=== PATIENT | male | born 1960 | race Caucasian/White ===

== ENCOUNTER 2019-09-15 17:30 | Inpatient (IN) ==
[2019-09-15] MEDS ORDERED: NS 1,000 ML IV ONE (17:41)
[2019-09-15 18:23] LABS: BASO# 0.02 X1000 (0.0-0.2); BASO% 0.1 % (0.0-0.8); EOS# 0.01 X1000 (0.0-0.7); EOS% 0.1 % (0.0-10.0); HEMATOCRIT 53.4 % (42.0-52.0); HEMOGLOBIN 18.2 g/dL (14.0-18.0); IMM GRAN# 0.06 X1000 (0.0-0.04); IMM GRAN% 0.3 % (0.0-0.5); LYMPH# 1.99 X1000 (1.2-3.4); MCH 28.4 PG (27-31); MCHC 34.1 g/dL (33-37); MCV 83.3 FL (81-99); MONO# 1.46 X1000 (0.11-0.59); MONO% 7.3 % (1.7-9.3); MPV 9.6 FL (7.4-10.4); NEUT# 16.45 X1000 (1.4-6.5); NEUT% 82.2 % (42.2-75.2); PLT 298 X1000 (130-400); RBC 6.41 XMIL (4.7-6.1); RDW 14.1 % (11.5-14.5); WBC 19.99 X1000 (4.8-10.8)
[2019-09-15 19:17] LABS: ACETAMINOPHEN < 1.2 ug/mL (10-30); AGAP 26; ALB/GLOB RATIO 1.9; ALBUMIN 5.4 g/dL (3.5-5.0); ALKALINE PHOSPHATASE 119 U/L (32-122); BUN 42 mg/dL (8-22); CALCIUM 9.9 mg/dL (8.8-10.2); CHLORIDE 84 mmol/L (98-107); COSMO 290; CREATININE 1.5 mg/dL (0.7-1.2); ESTIMATED GFR 48; GLUCOSE 400 mg/dL (70-104); GOT 16 U/L (10-34); GPT 10 U/L (10-44); MAGNESIUM 2.5 mg/dL (1.5-2.7); POTASSIUM 4.8 mmol/L (3.5-5.1); SODIUM 131 mmol/L (136-145); TCO2 21 mmol/L (25-35); TOTAL BILIRUBIN 1.37 mg/dL (0.20-1.00); TOTAL PROTEIN 8.3 g/dL (6.3-8.3)
[2019-09-15] MEDS ORDERED: HUMULIN R SUBQ ONE (19:17)
--- NOTE | 2019-09-15 19:18 | Diag Imaging Result Doc PS360 ---
EXAM: CHEST-2 VIEWS 09/15/2019 HISTORY: AMS + ELEVATED WBC TECHNIQUE: PA and lateral chest COMMENT: The inspiration is suboptimal. Considering the degree of inspiration there has been no significant change since 09/10/2018. IMPRESSION: No acute disease. Electronically signed by Satnam Collado 09/15/2019 7:16 PM
[2019-09-15 19:29] LABS: GGT 34 U/L (11-50)
[2019-09-15 19:48] LABS: SALICYLATES < 3.00 mg/dL (3-10)
[2019-09-15 20:00] LABS: URINE SOURCE CATH
--- NOTE | 2019-09-15 20:00 | PROVIDER DOCUMENTATION ---
This chart was entered by Sandhya Agarwal Scribe, acting as scribe for Kyle Gonzalez MD. [id number] Abuse/Overdose - General Source: patient, EMS (first response, was called when pt had a well check from police and was found ams) Unable to obtain history due to:: altered (possible OD of medications) - History of Present Illness-Drug/Alcohol This episode of drinking or use began:: unsure Severity: reports: moderate Situational problems related to:: reports: other (unknown) Psychiatric Complaints: reports: altered mental status Any injuries associated with this episode of intoxication?: No <Kyle Gonzalez - Last Filed: 09/15/19 19:59> <Darion Martinez - Last Filed: 09/15/19 20:48> - General Stated Complaint: overdose Time Seen by Provider: 09/15/19 17:34 Allergies/Adverse Reactions: Allergies Allergy/AdvReac Type Severity Reaction Status Date / Time No Known Allergies Allergy Verified 09/02/14 20:52 Home Medications: Home Medication List Medication Instructions Recorded Confirmed Last Taken Type Pregabalin [Lyrica] 150 mg PO TID 11/12/13 09/03/18 09/02/18 History Sertraline HCl [Zoloft] 100 mg PO DAILY 11/12/13 09/03/18 09/02/18 History Insulin Humalog 75/25 [Humalog Mix 22 unit SUBQ DIRECTED 05/11/14 09/03/18 09/02/18 History 75/25] Ranitidine HCl [Zantac] 150 mg PO PRN PRN 05/11/14 09/03/18 09/01/18 History Metoprolol Succinate E.r. [Toprol 25 mg PO DAILY 09/02/14 09/03/18 09/02/18 History Xl] SIMVAstatin [Zocor] 10 mg PO QHS 09/02/14 09/03/18 09/03/18 History Alprazolam [Xanax] 2 mg PO TID PRN 09/03/18 09/03/18 09/03/18 History Buprenorphine HCl/Naloxone HCl 0.5 film SL Q6H 09/04/18 09/04/18 Unknown History [Suboxone 8 mg/2 mg Sl Film] Insulin Glargine [Lantus] 30 unit SUBQ QHS #0 09/12/18 09/03/18 09/02/18 Rx Sulfamethoxazole/Tmp D.s. [Septra 1 ea PO Q12H #16 tab 09/12/18 Unknown Rx Ds] - History of Present Illness-Drug/Alcohol Nature of Presenting Problem: 59 yowm presents to the ed via ems with possible overdose on unknown medication and unknown amounts. per ems pt missed an medical appointment and when dr office called no answer and police was sent for a well check. pt was found surrounded by medication bottles that were all empty and pt has ams (Kyle Gonzalez) Review of Systems - Adult - REVIEW OF SYSTEMS - ADULT ROS:: unobtainable per condition Constitutional: reports: no symptoms reported Eyes: reports: no symptoms reported Ears, Nose, Mouth & Throat: reports: no symptoms reported Cardiovascular: reports: no symptoms reported Respiratory: denies: shortness of breath, wheezing Gastrointestinal: reports: no symptoms reported Genitourinary: reports: no symptoms reported Musculoskeletal: reports: no symptoms reported Integumentary: reports: no symptoms reported Neurological: reports: see HPI, slurred speech, other (ams) Psychiatric: reports: see HPI, other (possible od) Endocrine: reports: no symptoms reported Hematologic/Lymphatic: reports: no symptoms reported Allergic/Immunologic: reports: no symptoms reported All Other Systems: Reviewed and Negative <Kyle Gonzalez - Last Filed: 09/15/19 19:59> Past History - Adult - PAST MEDICAL HISTORY-ADULT Review of Records: reports: Old Records Reviewed, Nursing Assessment Review, Medications Reviewed, Social history reviewed & non-contributory. Major Childhood Illnesses: reports: denies history Cardiovascular: reports: cardiac disease, CAD, HTN Respiratory: reports: denies history Gastrointestinal: reports: denies history Genitourinary: reports: other (only has 1kidney) Musculoskeletal: reports: chronic pain, intervertebral disc disease Neurological: reports: denies history Psychiatric: reports: anxiety Endocrine/Immune: reports: denies history, Diabetes Diabetes Type: Type 2 Other Conditions: reports: denies history - PRIOR SURGERIES/PROCEDURES Surgical/Procedure History: reports: CABG, other (lumbar spine) - IMMUNIZATION STATUS Childhood Immunizations: UTD Flu Vaccine: UTD - FAMILY HISTORY Family History: reviewed, not pertinent - SOCIAL HISTORY Smoking: cigarettes, greater than 1 pack/day Provider spent 3-5 mins advising pt. on dangers of tobacco.: Discussed manners to quit use, and f/u contacts for add'l counseling. Living Situation: alone <Kyle Gonzalez - Last Filed: 09/15/19 19:59> Physical Exam-General - CONSTITUTIONAL General Appearance: mild distress - EYES Eyes: PERRL/EOMI - HEAD, EARS, NOSE, MOUTH & THROAT HENMT: moist mucous membranes - NECK Neck: normal inspection - RESPIRATORY Respiratory: chest non-tender, lungs clear, normal breath sounds - CARDIOVASCULAR Cardiovascular: normal peripheral pulses - CHEST (BREASTS) Chest/Breast: deferred - GASTROINTESTINAL (ABDOMEN) Abdominal Exam: soft - GENITOURINARY Male Genitalia: deferred Rectal Exam: deferred Hemoccult Exam: deferred - LYMPHATIC Lymphatic: no adenopathy - MUSCULOSKELETAL Extremity: normal range of motion - PSYCHIATRIC Psych/Mental Status: disoriented x 3, disheveled <Kyle Gonzalez - Last Filed: 09/15/19 19:59> Progress - PLAN OF CARE/RESULTS Result Diagrams: 09/15/19 18:00 09/15/19 18:00 - REASSESSMENT Reassessment #1 Time Reassessed: 19:58 Status: other (HEMODYNAMICALLY STABLE AND AFEBILE; CURRENTLY WORKING UP FOR DKA. PATIENT REEIVED 10U INSULINE REGULAR. SINGING OUT TO DR. STUBBS) - EKG 1 Time of EKG reading by physician:: 19:59 EKG Read and Signed by:: Kyle Gonzalez EKG Interpretation (*Must complete 3 of following elements*): Normal Rate: 78 Rhythm: NORAL SINUS RHYTHM [place]: left QRS: normal SD Interval: normal Prior EKG Comparison: unchanged from prior, no prior EKG - CHANGE OF SHIFT REPORT (ED Provider) 1 Report Given and Care Transferred to:: dR. MARTINEZ Time of Transfer: 19:57 Items Pending: Labs, Physician Consult/Arrival, Other (MEDICAL MANAGMENT.) <Kyle Gonzalez - Last Filed: 09/15/19 19:59> - PLAN OF CARE/RESULTS Result Diagrams: 09/15/19 18:00 09/15/19 18:00 - CONSULTS/PCP/HOSPITALIST Notification #1 *Consult/PCP/Hospitalist*: d/w Dr Chandra Time Discussed: 20:40 Consult Disposition: Admit (advised CT head, will accept the pt.) <Darion Martinez - Last Filed: 09/15/19 20:48> - PLAN OF CARE/RESULTS Progress/Plan/Lab Results: Vital Signs - 8 hr 09/15/19 17:50 09/15/19 19:13 09/15/19 19:15 Temperature 98.6 F Pulse Rate 77 Respiratory Rate 20 Blood Pressure 161/98 165/103 O2 Sat by Pulse Oximetry 93 L 93 L 94 L 09/15/19 19:30 09/15/19 19:45 09/15/19 19:54 Temperature Pulse Rate Respiratory Rate Blood Pressure 132/89 O2 Sat by Pulse Oximetry 93 L 95 92 L 09/15/19 20:00 09/15/19 20:15 Temperature Pulse Rate Respiratory Rate Blood Pressure O2 Sat by Pulse Oximetry 92 L 95 Laboratory Results - last 24 hr 09/15/19 09/15/19 09/15/19 17:39 18:00 18:00 WBC 19.99 H RBC 6.41 H Hgb 18.2 H Hct 53.4 H MCV 83.3 MCH 28.4 MCHC 34.1 RDW Std Deviation 14.1 Plt Count 298 MPV 9.6 Immature Gran % (Auto) 0.3 Neut % (Auto) 82.2 H Lymph % (Auto) 10.0 L [place] % (Auto) 7.3 Eos % (Auto) 0.1 Baso % (Auto) 0.1 Immature Gran # (Auto) 0.06 H Neut # (Auto) 16.45 H Lymph # (Auto) 1.99 [place] # (Auto) 1.46 H Eos # (Auto) 0.01 Baso # (Auto) 0.02 Specimen Type Sample Site pH pCO2 pO2 HCO3 Base Excess Oxyhemoglobin ABG O2 Sat (Calculated) ABG O2 Saturation ABG Carboxyhemoglobin ABG Methemoglobin Floyd Test A-a O2 Difference Total Hemoglobin Lactate Blood Gas Modality FiO2 % Sodium 131 L Potassium 4.8 Chloride 84 L Carbon Dioxide 21 L Anion Gap 26 BUN 42 H Creatinine 1.5 H Estimated GFR/1.73 m2 48 BUN/Creatinine Ratio 28 Glucose 400 H* POC Glucose 340 H D Calculated Osmolality 290 Calcium 9.9 Magnesium 2.5 Total Bilirubin 1.37 H GGT AST 16 ALT 10 Alkaline Phosphatase 119 Ammonia Total Protein 8.3 Albumin 5.4 H Globulin 2.9 Albumin/Globulin Ratio 1.9 Urine Source Urine Color Urine Turbidity Urine pH Ur Specific [place] Urine Protein Ur Glucose (Stick) Ur Ketones (Stick) Urine Blood Urine Nitrite Urine Bilirubin Urobilinogen Dipstick Urine Leukocytes Urine WBC (Auto) Urine RBC (Auto) U Epithel Cells (Auto) Urine Bacteria (Auto) Salicylates Urine Opiates Screen Ur Oxycodone Screen Ur Methadone, Qual Acetaminophen < 1.2 L Ur Barbiturates Screen Ur Phencyclidine Scrn Ur Amphetamines Screen U Benzodiazepines Scrn Urine Cocaine Screen U Cannabinoids Screen Plasma/Serum Ethyl Alc Acetone Level 09/15/19 09/15/19 09/15/19 18:00 18:00 19:16 WBC RBC Hgb Hct MCV MCH MCHC RDW Std Deviation Plt Count MPV Immature Gran % (Auto) Neut % (Auto) Lymph % (Auto) [place] % (Auto) Eos % (Auto) Baso % (Auto) Immature Gran # (Auto) Neut # (Auto) Lymph # (Auto) [place] # (Auto) Eos # (Auto) Baso # (Auto) Specimen Type Sample Site pH pCO2 pO2 HCO3 Base Excess Oxyhemoglobin ABG O2 Sat (Calculated) ABG O2 Saturation ABG Carboxyhemoglobin ABG Methemoglobin Floyd Test A-a O2 Difference Total Hemoglobin Lactate Blood Gas Modality FiO2 % Sodium Potassium Chloride Carbon Dioxide Anion Gap BUN Creatinine Estimated GFR/1.73 m2 BUN/Creatinine Ratio Glucose POC Glucose Calculated Osmolality Calcium Magnesium Total Bilirubin GGT 34 AST ALT Alkaline Phosphatase Ammonia 20 Total Protein Albumin Globulin Albumin/Globulin Ratio Urine Source Urine Color Urine Turbidity Urine pH Ur Specific [place] Urine Protein Ur Glucose (Stick) Ur Ketones (Stick) Urine Blood Urine Nitrite Urine Bilirubin Urobilinogen Dipstick Urine Leukocytes Urine WBC (Auto) Urine RBC (Auto) U Epithel Cells (Auto) Urine Bacteria (Auto) Salicylates < 3.00 L Urine Opiates Screen Ur Oxycodone Screen Ur Methadone, Qual Acetaminophen Ur Barbiturates Screen Ur Phencyclidine Scrn Ur Amphetamines Screen U Benzodiazepines Scrn Urine Cocaine Screen U Cannabinoids Screen Plasma/Serum Ethyl Alc Acetone Level 09/15/19 09/15/19 09/15/19 19:23 19:39 19:52 WBC RBC Hgb Hct MCV MCH MCHC RDW Std Deviation Plt Count MPV Immature Gran % (Auto) Neut % (Auto) Lymph % (Auto) [place] % (Auto) Eos % (Auto) Baso % (Auto) Immature Gran # (Auto) Neut # (Auto) Lymph # (Auto) [place] # (Auto) Eos # (Auto) Baso # (Auto) Specimen Type Sample Site pH pCO2 pO2 HCO3 Base Excess Oxyhemoglobin ABG O2 Sat (Calculated) ABG O2 Saturation ABG Carboxyhemoglobin ABG Methemoglobin Floyd Test A-a O2 Difference Total Hemoglobin Lactate Blood Gas Modality FiO2 % Sodium Potassium Chloride Carbon Dioxide Anion Gap BUN Creatinine Estimated GFR/1.73 m2 BUN/Creatinine Ratio Glucose POC Glucose 330 H Calculated Osmolality Calcium Magnesium Total Bilirubin GGT AST ALT Alkaline Phosphatase Ammonia Total Protein Albumin Globulin Albumin/Globulin Ratio Urine Source CATH Urine Color YELLOW Urine Turbidity CLEAR Urine pH 5.5 Ur Specific [place] 1.030 Urine Protein 70 A Ur Glucose (Stick) >1000 A Ur Ketones (Stick) 60 A Urine Blood TRACE A Urine Nitrite NEGATIVE Urine Bilirubin NEGATIVE Urobilinogen Dipstick NORMAL Urine Leukocytes NEGATIVE Urine WBC (Auto) <10 Urine RBC (Auto) <10 U Epithel Cells (Auto) <10 Urine Bacteria (Auto) NEGATIVE Salicylates Urine Opiates Screen Ur Oxycodone Screen Ur Methadone, Qual Acetaminophen Ur Barbiturates Screen Ur Phencyclidine Scrn Ur Amphetamines Screen U Benzodiazepines Scrn Urine Cocaine Screen U Cannabinoids Screen Plasma/Serum Ethyl Alc Acetone Level SMALL A 09/15/19 09/15/19 19:52 20:00 WBC RBC Hgb Hct MCV MCH MCHC RDW Std Deviation Plt Count MPV Immature Gran % (Auto) Neut % (Auto) Lymph % (Auto) [place] % (Auto) Eos % (Auto) Baso % (Auto) Immature Gran # (Auto) Neut # (Auto) Lymph # (Auto) [place] # (Auto) Eos # (Auto) Baso # (Auto) Specimen Type ARTERIAL Sample Site R RADIAL pH 7.44 pCO2 32 L pO2 64 HCO3 23.7 Base Excess -1.3 Oxyhemoglobin 91.9 L ABG O2 Sat (Calculated) 23.4 H ABG O2 Saturation 95.2 ABG Carboxyhemoglobin 2.30 ABG Methemoglobin 1.1 Floyd Test YES A-a O2 Difference 46.0 Total Hemoglobin 18.2 H Lactate 1.50 Blood Gas Modality ROOM AIR FiO2 % 21.0 Sodium Potassium Chloride Carbon Dioxide Anion Gap BUN Creatinine Estimated GFR/1.73 m2 BUN/Creatinine Ratio Glucose POC Glucose Calculated Osmolality Calcium Magnesium Total Bilirubin GGT AST ALT Alkaline Phosphatase Ammonia Total Protein Albumin Globulin Albumin/Globulin Ratio Urine Source Urine Color Urine Turbidity Urine pH Ur Specific [place] Urine Protein Ur Glucose (Stick) Ur Ketones (Stick) Urine Blood Urine Nitrite Urine Bilirubin Urobilinogen Dipstick Urine Leukocytes Urine WBC (Auto) Urine RBC (Auto) U Epithel Cells (Auto) Urine Bacteria (Auto) Salicylates Urine Opiates Screen NONE DETECTED Ur Oxycodone Screen NONE DETECTED Ur Methadone, Qual NONE DETECTED Acetaminophen Ur Barbiturates Screen NONE DETECTED Ur Phencyclidine Scrn NONE DETECTED Ur Amphetamines Screen NONE DETECTED U Benzodiazepines Scrn NONE DETECTED Urine Cocaine Screen NONE DETECTED U Cannabinoids Screen NONE DETECTED Plasma/Serum Ethyl Alc Acetone Level Orders Category Date Time Status Finger Stick Blood Sugar (ED) NOW Care 09/15/19 17:43 Active Nursing- Obtain EKG ONCE Care 09/15/19 17:[address] HEAD W/O CONTRAST [CT] Stat Exams 09/15/19 20:44 Ordered cxr [CHEST-2 VIEWS] [RAD] Stat Exams 09/15/19 18:54 Completed ABG [RESP] Routine Lab 09/15/19 20:00 Completed ACETAMINOPHEN [TDM] Stat Lab 09/15/19 18:00 Completed ACETONE SERUM [CHEM] Stat Lab 09/15/19 19:39 Completed ALCOHOL BLOOD Stat Lab 09/15/19 18:00 Completed AMMONIA [CHEM] Stat Lab 09/15/19 19:16 Completed BLOOD CULTURE [BLDCUL] Stat Lab 09/15/19 20:48 Uncollected CBC WITH DIFF [HEME] Stat Lab 09/15/19 18:00 Completed COMPREHENSIVE METABOLIC PANEL [CHEM] Stat Lab 09/15/19 18:00 Completed GGT [CHEM] Stat Lab 09/15/19 18:00 Completed MAGNESIUM [CHEM] Stat Lab 09/15/19 18:00 Completed SALICYLATES [TDM] Stat Lab 09/15/19 18:00 Completed URINALYSIS [URINALYSIS] Stat Lab 09/15/19 19:52 Completed URINE DRUG SCREEN Stat Lab 09/15/19 19:52 Completed 0.9% Sodium Chloride Inj [Ns] 1,000 ml Med 09/15/19 17:41 Discontinued IV 999 mls/hr Insulin Human Regular [Humulin R] Med 09/15/19 19:17 Discontinued 10 unit SUBQ NOW ONE Rocephin 1 gm/Ns IV Now Med 09/15/19 20:47 Ordered CefTRIAXONE [Rocephin] 1 gm 0.9% Sodium Chloride Inj [Ns] 50 ml IV NOW EKG [EKG] Stat Ther 09/15/19 17:41 Draft Departure <Kyle Gonzalez - Last Filed: 09/15/19 19:59> - Departure Date of Disposition Decision: 09/15/19 Time of Disposition Decision: 20:38 Certified Medical Emergency: Emergent - Critical Care Note This patient required my direct & personal management of CC.: No <Darion Martinez - Last Filed: 09/15/19 20:48> - Departure DIAGNOSIS: Diabetic ketosis without coma, Leukocytosis, Altered mental status Disposition: ADMITTED INPATIENT 09 Condition: Stable Referrals and Follow-Ups: Prateek Sifuentes MD [Primary Care Provider] - Attestation - Physician/ AMITA Attestation Patient care was provided by Advanced Practice Provider:: No The physician spent face to face time with patient:: Yes Advanced Practice Provider documentation review:: Supervising physician onsite and consulted in the evaluation and care of this patient. The physician did have a face to face encounter with the patient. <Kyle Gonzalez - Last Filed: 09/15/19 19:59> This chart was documented by the indicated scribe, (Sandhya Agarwal Scribe) and accurately reflects the services I performed and decisions made by me, Kyle Gonzalez MD, as attested by the provider's signature.
[2019-09-15 20:11] LABS: ALLEN TEST YES; BE -1.3 mmoll (-3.0-3.0); BLOOD TYPE ARTERIAL; HCO3-(ACT) 23.7 mmoll (20.0-26.0); METHB 1.1 % (0.0-1.5); O2(CT) 23.4 mL/dL (15.0-23.0); O2HB 91.9 % (95.0-99.0); PCO2(98.6) 32 mmHg (35-45); PO2(98.6) 64 mmHg (60-100); SAMPLE BLOOD; SAO2 95.2 % (95.0-100.0); THB 18.2 g/dL (11.5-17.4); pH(98.6) 7.44 (7.35-7.45)
[2019-09-15 20:12] LABS: MODALITY ROOM AIR
[2019-09-15 20:17] LABS: BILIRUBIN URINE NEGATIVE (NEGATIVE); BLOOD URINE TRACE (NEGATIVE); COLOR YELLOW; GLUCOSE URINE >1000 mg/dL (NEGATIVE); KETONE URINE 60 mg/dL (NEGATIVE); LEUKOCYTES URINE NEGATIVE (NEGATIVE); NITRITE URINE NEGATIVE (NEGATIVE); PH URINE 5.5; PROTEIN URINE 70 mg/dL (NEGATIVE); TURBIDITY URINE CLEAR (CLEAR); UR EPITHELIAL CELLS <10 /HPF (<10); URINE BACTERIA NEGATIVE /HPF; URINE RBC <10 /HPF (<10); URINE WBC <10 /HPF (<10); UROBILINOGEN URINE NORMAL (NORMAL)
[2019-09-15 20:19] LABS: UR AMPHETAMINES QUAL NONE DETECTED (NONE DETECT); UR BARBITUATES QUAL NONE DETECTED (NONE DETECT); UR BENZODIAZEPIN QUAL NONE DETECTED (NONE DETECT); UR CANNABINOIDS QUAL NONE DETECTED (NONE DETECT); UR COCAINE QUAL NONE DETECTED (NONE DETECT); UR METHADONE QUAL NONE DETECTED (NONE DETECT); UR OPIATES QUAL NONE DETECTED (NONE DETECT); UR OXYCODONE QUAL NONE DETECTED (NONE DETECT); UR PCP QUAL NONE DETECTED (NONE DETECT)
--- NOTE | 2019-09-15 20:32 | EKG Report ---
Test Performed on : 09/15/2019 7:45:42 PM Test Reason : CP Blood Pressure : / mmHG Vent. Rate : 078 BPM Atrial Rate : 078 BPM P-R Int : 148 ms QRS Dur : 088 ms QT Int : 420 ms P-R-T Axes : 026 043 119 degrees QTc Int : 478 ms Normal sinus rhythm. Anteroseptal infarct (cited on or before 22-NOV-2008) Abnormal ECG When compared with ECG of 15-SEP-2019 17:42, (Unconfirmed) No significant change was found Unconfirmed Result
[2019-09-15] MEDS ORDERED: ROCEPHIN 1 GM in NS 50 ML IV ONE (20:47)
--- NOTE | 2019-09-15 21:23 | Diag Imaging Result Doc PS360 ---
EXAM: CT HEAD W/O CONTRAST 09/15/2019 HISTORY: altered mental status TECHNIQUE: This exam was performed using automated exposure control, adjustment of mA or kV according to patient size, and/or use of iterative reconstruction technique. COMMENT: There is some minimal ill-defined patchy lucencies in the subcortical white matter and the frontal periventricular white matter. There is no evidence of mass effect, bleed, or abnormal extra-axial fluid collection. There are calcifications in the left vertebral, basilar and bilateral internal carotid arteries. There is no evidence of acute bony abnormality. There is mucosal thickening and fluid in the right maxillary sinus and there are apparent bilateral maxillary antral windows. IMPRESSION: Minimal chronic microvascular white matter disease. Right maxillary sinusitis. Electronically signed by Satnam Collado 09/15/2019 9:21 PM
--- NOTE | 2019-09-15 22:54 | HISTORY AND PHYSICAL ---
PRIMARY CARE PHYSICIAN: Dr. Prateek Sifuentes in [place]. CHIEF COMPLAINT: Altered mental status. HISTORY OF PRESENTING ILLNESS: A 59-year-old male with a history of chronic low back pain, diabetes mellitus type 2, coronary artery disease who apparently was found by police during a welfare check altered. He apparently had several empty bottles around him. When EMS arrived, it was suspected possibly he had taken medications of unknown quantities and possibly overdose. He was evaluated in the emergency department. He was initially confused, and he became more alert. His family had been by his bedside and stated that he ran out of his medicines about a week ago due to his previous pain doctor releasing him, and he has found another doctor, but he missed appointment. The patient apparently had been on benzodiazepines and Suboxone for quite some time. At the time of my examination, he was more alert, however, still was confused. He denied any headache, fever, chills, chest pain, shortness of breath or any weight changes. PAST MEDICAL HISTORY: Chronic low back pain, diabetes mellitus type 2, coronary artery disease, osteomyelitis of the second toe. PAST SURGICAL HISTORY: Back surgery, coronary artery bypass, right second toe amputation. ALLERGIES: No known drug allergies. CURRENT MEDICATIONS: Include Xanax. 0.25 mg p.o. b.i.d., Suboxone 8 mg/2 mg daily, pregabalin 100 mg p.o. daily. SOCIAL HISTORY: A 50+ pack year history of smoking. Denies any history of alcohol or illicit drug use. FAMILY HISTORY: No history of coronary disease. REVIEW OF SYSTEMS: Fourteen-point review of systems listed as in HPI. Other systems negative. PHYSICAL EXAMINATION: GENERAL: Somewhat disheveled male. He is without any respiratory distress. He is still somewhat confused. VITAL SIGNS: Temperature 98.6 degrees, pulse 77, respirations 20, blood pressure 161/98. HEENT: Atraumatic, normocephalic. PERRLA. NECK: No masses. CHEST: Rhonchi. CARDIOVASCULAR: Regular rate and rhythm. ABDOMEN: Soft. Positive bowel sounds. EXTREMITIES: No edema. NEUROLOGIC: He is awake, alert, oriented x1. GENITOURINARY: No bladder distention. SKIN: Warm. LABORATORIES AND STUDIES: WBCs 19.99, hemoglobin 18.2, hematocrit 43.4, platelets 298,000. Sodium 131, potassium 4.8, chloride 84, CO2 is 21, BUN is 42, creatinine is 1.5, glucose is 400. UA: Nitrite negative. Toxicology shows small acetone level. ASSESSMENT: A 59-year-old male with a history of chronic low back pain, diabetes mellitus type 2, coronary disease, who is brought to the emergency department after welfare check where he was found altered. He was apparently found with several bottles around him. As per family, he has been out of his medications for a week, and he was trying to get in with a new pain doctor. His symptoms are more consistent with withdrawal. Subsequently, he will need admission for further management. The patient was also noted to be hyperglycemic and possibly have early diabetic ketoacidosis. 1. Altered mental status multifactorial. 2. Suspected Xanax and Suboxone withdrawal. 3. Coronary artery disease. 4. Diabetes mellitus type 2 with hyperglycemia and possible early diabetic ketoacidosis. 5. Ongoing tobacco abuse. PLAN: 1. We will admit patient to [facility]. 2. Continue with neuro checks. 3. We will continue with the Ativan p.r.n. for withdrawal. 4. We will put patient on a high sliding scale insulin regimen. Monitor blood glucose closely. 5. We will put patient on DVT prophylaxis with heparin. 6. We will continue to follow and reassess and make further recommendations based on patient's clinical course. cc: Juan Chandra MD
[2019-09-16] MEDS ORDERED: ATIVAN IV PRN (01:40)
[2019-09-16] MEDS: NS 1,000 ML IV SCH ×4 (02:41→22:00)
[2019-09-16] MEDS ORDERED: PHENOBARBITAL IV ONE (04:15)
[2019-09-16 06:04] LABS: BASO# 0.01 X1000 (0.0-0.2); BASO% 0.1 % (0.0-0.8); EOS# 0.01 X1000 (0.0-0.7); EOS% 0.1 % (0.0-10.0); HEMOGLOBIN 16.8 g/dL (14.0-18.0); IMM GRAN# 0.04 X1000 (0.0-0.04); IMM GRAN% 0.2 % (0.0-0.5); LYMPH# 1.59 X1000 (1.2-3.4); LYMPH% 8.9 % (20.5-51.1); MCH 28.7 PG (27-31); MCHC 34.3 g/dL (33-37); MCV 83.8 FL (81-99); MONO# 1.59 X1000 (0.11-0.59); MONO% 8.9 % (1.7-9.3); MPV 9.8 FL (7.4-10.4); NEUT% 81.8 % (42.2-75.2); PLT 249 X1000 (130-400); RBC 5.85 XMIL (4.7-6.1); WBC 17.84 X1000 (4.8-10.8)
[2019-09-16 06:21] LABS: AGAP 19; BUN 35 mg/dL (8-22); CALCIUM 8.8 mg/dL (8.8-10.2); CHLORIDE 93 mmol/L (98-107); COSMO 284; CREATININE 1.1 mg/dL (0.7-1.2); ESTIMATED GFR > 60; GLUCOSE 268 mg/dL (70-104); POTASSIUM 4.3 mmol/L (3.5-5.1); SODIUM 133 mmol/L (136-145); TCO2 21 mmol/L (25-35)
[2019-09-16] MEDS: ATIVAN IV PRN (06:29)
[2019-09-16] MEDS: HUMULIN R SUBQ SCH ×4 (06:50→21:36)
[2019-09-16] MEDS: HEPARIN SUBQ SCH ×2 (08:15→21:06)
[2019-09-16] MEDS ORDERED: XANAX PO PRN (08:52)
[2019-09-16] MEDS: ZOLOFT PO SCH (11:15)
[2019-09-16] MEDS: LYRICA PO SCH ×3 (12:51→21:06)
--- NOTE | 2019-09-16 14:48 | PROGRESS NOTE ---
DATE: 09/16/2019 INTERVAL HISTORY: Patient was admitted last night with encephalopathy. The patient is chronically on a fairly significant amount of Suboxone and Xanax. His family reported that he had been out for a week, so withdrawal was favored initially. On review of the PDMP, the patient filled his Suboxone and Xanax just under a month ago, and therefore should have not been out already. Discussed with his counseling case manager [facility], and they reported some concern that his family might be diverting his medications. The patient remains markedly confused. He is awake and alert, but speech makes no sense whatsoever. Appears to likely be hallucinating. UDS was negative. Initial workup showed borderline DKA which is improved this morning and sinusitis, but no other obvious source of infection. He has previously had a right 2nd toe amputation and the site looks good. He had significant agitation last night and eventually required phenobarbital. REVIEW OF SYSTEMS: Unable to obtain secondary to patient's mental status. LABORATORY DATA: WBC 17.8, hemoglobin 16.8, hematocrit 49.0, platelets 249,000. Sodium 133, potassium 4.3, bicarbonate 21, BUN 35, creatinine 1.1, glucose 208 to 268, improved from 400+ last night. IMAGING: Chest x-ray with no acute process. Head CT with right maxillary sinusitis, but otherwise no acute process. VITALS: Temperature max 98.9 degrees, pulse 63, respirations 18, blood pressure 145/97, O2 saturation 95% on room air. PHYSICAL EXAMINATION: General: Relatively calm. Vitals: As above. HEENT: Still slightly dry mucous membranes. no nuchal rigidity. I'm able to move his neck around with essentially no resistance and what appears to be normal range of motion, Normocephalic, atraumatic. Pupils normal in size and reactivity. Cardiovascular: Regular rate and rhythm. No murmurs noted. Pulmonary: Clear to auscultation bilaterally. No wheezing, rales, or rhonchi. Abdomen: Soft, nontender, nondistended. Bowel sounds positive. Extremities: Peripheral pulses intact. Right 2nd toe amputation well healed with no sign of current infection. Neurologic: Pupils, normal size and reactivity. No facial asymmetry. Individual words are clear without slurring. No sign of focal neurologic deficit. Does have mild tremor when hands are held out. Psychiatric: Markedly encephalopathic. Speech, he has clear individual words, but content is garbled. Not cooperative. Skin: Dry. No new- appearing rashes. ASSESSMENT AND PLAN: 1. Metabolic encephalopathy. Initial diagnosis was withdrawal and that may still be the case. The patient has gotten a significant amount of Ativan and phenobarbital with improvement in his heart rate and tremulousness, but still quite confused and appears to be hallucinating. He is awake and alert, and intermittently cooperative, so we will see if we can put him back on his home dose of Xanax and Suboxone. If he improves, then can leave it at that, but if he continues to have marked confusion, then we will likely have to get Neurology involved and pursue further workup. Neck is supple and he moves it without difficulty. Afebrile. Suspicion for meningitis is low currently. 2. Acute kidney injury. Improved with IV fluids overnight. 3. Diabetes mellitus. Initial labs look like he might be in early DKA, but ABG with normal pH and labs improved this morning, so will continue sliding scale and monitor. 4. Chronic pain and anxiety. Family reports he has been out for approximately a week. PDMP suggests that he should still have a couple of days left. Uncertain if patient was taking more than prescribed or family was diverting some of his medications. We will try to talk with patient further once his mental status improves. 5. Tobacco abuse. Aware. 6. Coronary artery disease. The patient does not appear to have been on aspirin prior to admission, and I do not see any history of issues with bleeding, so will likely go ahead and start that. He has had a stress test in the past, which showed a large defect suggestive of previous infarcts. 7. Hyponatremia. Improving with hydration. Monitor. 8. Leukocytosis, sinusitis. The right maxillary sinusitis noted on CT is the only source of infection we have found so far. Started on Rocephin initially. We will likely transition to Augmentin once he is reliably taking by mouth medications. Continue to monitor for signs of other infection. [facility]
[2019-09-16] MEDS: SUBOXONE 8 MG/2 MG SL SCH ×2 (16:02→21:03)
[2019-09-16 16:27] LABS: UR AMPHETAMINES QUAL NONE DETECTED (NONE DETECT); UR BARBITUATES QUAL PRESUMPTIVE POSITIVE (NONE DETECT); UR BENZODIAZEPIN QUAL NONE DETECTED (NONE DETECT); UR CANNABINOIDS QUAL NONE DETECTED (NONE DETECT); UR COCAINE QUAL NONE DETECTED (NONE DETECT); UR METHADONE QUAL NONE DETECTED (NONE DETECT); UR OPIATES QUAL NONE DETECTED (NONE DETECT); UR OXYCODONE QUAL NONE DETECTED (NONE DETECT); UR PCP QUAL NONE DETECTED (NONE DETECT)
[2019-09-16] MEDS: ROCEPHIN 1 GM in NS 50 ML IV SCH (21:02)
[2019-09-17] MEDS: HUMULIN R SUBQ SCH ×4 (06:05→21:20)
[2019-09-17 08:11] LABS: HEMOGLOBIN 16.6 g/dL (14.0-18.0); MCH 28.8 PG (27-31); MCHC 33.2 g/dL (33-37); MCV 86.7 FL (81-99); MPV 9.8 FL (7.4-10.4); RBC 5.77 XMIL (4.7-6.1); RDW 14.1 % (11.5-14.5); WBC 13.55 X1000 (4.8-10.8)
[2019-09-17 08:31] LABS: AGAP 18; ALB/GLOB RATIO 1.4; ALBUMIN 3.8 g/dL (3.5-5.0); ALKALINE PHOSPHATASE 93 U/L (32-122); BUN 27 mg/dL (8-22); CALCIUM 8.6 mg/dL (8.8-10.2); CHLORIDE 99 mmol/L (98-107); COSMO 289; ESTIMATED GFR > 60; GLUCOSE 210 mg/dL (70-104); GOT 10 U/L (10-34); GPT 5 U/L (10-44); POTASSIUM 4.4 mmol/L (3.5-5.1); SODIUM 139 mmol/L (136-145); TCO2 22 mmol/L (25-35); TOTAL BILIRUBIN 0.79 mg/dL (0.20-1.00); TOTAL PROTEIN 6.6 g/dL (6.3-8.3)
[2019-09-17] MEDS: HEPARIN SUBQ SCH ×2 (08:47→20:43)
[2019-09-17] MEDS: LYRICA PO SCH ×3 (08:47→16:18)
[2019-09-17] MEDS: SUBOXONE 8 MG/2 MG SL SCH ×2 (08:47→20:43)
[2019-09-17] MEDS: ZOLOFT PO SCH (08:47)
[2019-09-17] MEDS: ASPIRIN PO SCH (08:47)
--- NOTE | 2019-09-17 08:56 | Diag Imaging Result Doc PS360 ---
EXAM: CHEST-PORTABLE HISTORY: dyspnea TECHNIQUE: Single view COMPARISON: 09/15/2019 FINDINGS: The lungs are well expanded. The heart is not enlarged. There are sternal wires. The vessels are not distended. There are no infiltrates. No effusion identified. IMPRESSION: Negative exam. Electronically signed by Roscoe Ayers 09/17/2019 8:53 AM
[2019-09-17] MEDS ORDERED: NICODERM PATCH TD PRN (16:13)
--- NOTE | 2019-09-17 16:20 | PROGRESS NOTE ---
DATE: 09/17/2019 SUBJECTIVE: The patient notes that he feels much better. States he is unclear as to what actually caused him to be in the hospital. States he is hungry and would like to eat breakfast. PHYSICAL EXAMINATION: Vital Signs: Temperature 97.6, pulse 63, respiratory rate 25, BP 141/62. General: Patient is awake, alert. He is in no distress. HEENT: Normocephalic. Neck: Supple. Cardiovascular: Regular rate. No murmurs. Chest: Clear, nonlabored. Abdomen: Soft, nondistended. Extremities: Moves all extremities. ASSESSMENT: 1. Metabolic encephalopathy appears to have resolved. 2. Leukocytosis, improved. 3. Chronic opiate abuse, currently on Suboxone medication-assisted therapy. 4. Chronic anxiety, on Xanax. I did discuss with patient that if he is taking 2 mg 3 times a day, certainly, he needs to work on trying to wean that down. 5. Hyponatremia, resolved. 6. Coronary artery disease. 7. Hypertension. PLAN: Overall, the patient's mental status appears to be back to his baseline. He is awake, alert, oriented. We are going to allow him to eat breakfast. If he tolerates this, hopefully he can be discharged home with Augmentin. He certainly has a leukocytosis that may be from a sinus infection. We will continue to follow. cc: Ramesh Arroyo MD
[2019-09-17] MEDS: ROCEPHIN 1 GM in NS 50 ML IV SCH (20:43)
[2019-09-18] MEDS: HUMULIN R SUBQ SCH ×4 (06:07→21:54)
[2019-09-18] MEDS: SUBOXONE 8 MG/2 MG SL SCH ×2 (08:38→20:25)
[2019-09-18] MEDS: ZOLOFT PO SCH (08:38)
[2019-09-18] MEDS: LYRICA PO SCH ×3 (08:38→16:21)
[2019-09-18] MEDS: ASPIRIN PO SCH (08:38)
[2019-09-18] MEDS: HEPARIN SUBQ SCH ×2 (08:39→20:26)
--- NOTE | 2019-09-18 18:05 | PROGRESS NOTE ---
DATE: 09/18/2019 SUBJECTIVE: Patient notes he is still tired and fatigued. Denies any chest pain, palpitations. States he still does not feel well overall. PHYSICAL EXAMINATION: Vitals: Temp 98, pulse 56, respiratory rate 18, BP 162/72. General: Patient is pleasant. He is in no distress. He is awake, alert, oriented x3. HEENT: Normocephalic. Neck: Supple. Cardiovascular: Regular rate. No murmurs. Chest: Clear, nonlabored. Abdomen: Soft. Extremities: Moves all extremities. ASSESSMENT: 1. Diabetes with poor control. Patient does have insulin at home. 2. Adult failure to thrive with generalized weakness. 3. Leukocytosis, improved. 4. Metabolic encephalopathy, resolved. 5. Hyponatremia, resolved. 6. Known coronary artery disease. 7. Hypertension. PLAN: Hopefully, patient will continue to improve today and can start ambulating. If so, then he can discharge home this afternoon. We will continue Augmentin. He will restart his home insulin for his diabetes. cc: Ramesh Arroyo MD
[2019-09-18] MEDS: ATIVAN IV PRN (20:24)
[2019-09-18] MEDS: ROCEPHIN 1 GM in NS 50 ML IV SCH (20:31)
[2019-09-19] MEDS: HUMULIN R SUBQ SCH ×3 (06:31→17:28)
[2019-09-19] MEDS: LYRICA PO SCH ×3 (09:25→18:28)
[2019-09-19] MEDS: HEPARIN SUBQ SCH (09:25)
[2019-09-19] MEDS: ZOLOFT PO SCH (09:25)
[2019-09-19] MEDS: SUBOXONE 8 MG/2 MG SL SCH ×2 (09:25→20:19)
[2019-09-19] MEDS: ASPIRIN PO SCH (09:25)
--- NOTE | 2019-09-19 10:36 | DISCHARGE SUMMARY ---
ADMISSION DATE: 09/15/2019 DISCHARGE DATE: 09/19/2019 DISCHARGE DIAGNOSES: 1. Metabolic encephalopathy, resolved. 2. Leukocytosis, improved. 3. Chronic opiate abuse currently stabilized on medication assisted therapy, i.e. Suboxone. 4. Chronic anxiety, currently on Xanax. 5. Hyponatremia resolved. 6. Known coronary artery disease. 7. Hypertension. 8. Diabetes. CONSULTATIONS: None. PROCEDURES: None. BRIEF HOSPITAL COURSE: The patient is a 59-year-old male who presented to the hospital. Thankfully, his metabolic encephalopathy has resolved. Unclear as to the etiology of his confusion. Certainly medication effect could be the cause. Currently, he is stable, awake, alert, oriented. DISPOSITION: Patient will be discharged home. He is able to ambulate as he does at home per him. He will continue his home medications. He will continue to follow up outpatient with his primary care. TIME SPENT: 30 minutes was spent on total care. cc: Ramesh Arroyo MD
[2019-09-19 12:27] VITALS: BP 144/73
== END 2019-09-19 20:21 | disposition home health service (06) | DRG 70 ==
LOC: SUPCPDRO → ED 17:30 → 2N 23:29 → OBSVTOIN 23:29 → INTOOBSV 23:29 → SUATTDRO 23:29 → 3N 09-19 05:58
PROVIDERS: ATTEND Family Medicine

== ENCOUNTER 2019-10-11 15:41 | Observation (INO) ==
--- NOTE | 2019-10-11 16:30 | EKG Report ---
Test Performed on : 10/11/2019 3:52:37 PM Test Reason : CP Blood Pressure : / mmHG Vent. Rate : 108 BPM Atrial Rate : 108 BPM P-R Int : 152 ms QRS Dur : 084 ms QT Int : 328 ms P-R-T Axes : 063 014 152 degrees QTc Int : 439 ms Sinus tachycardia. with occasional premature ventricular complexes. Anteroseptal infarct (cited on or before 22-NOV-2008) T wave abnormality, consider inferior ischemia Abnormal ECG When compared with ECG of 15-SEP-2019 19:45, (Unconfirmed) premature ventricular complexes. are now present Unconfirmed Result
[2019-10-11] MEDS ORDERED: CARAFATE LIQUID PO ONE (16:31)
--- NOTE | 2019-10-11 16:43 | Diag Imaging Result Doc PS360 ---
EXAM: CHEST-PORTABLE 10/11/2019 HISTORY: chest pain TECHNIQUE: AP portable at 1634 COMMENT: There are sternotomy wires. The heart size is not enlarged. Overall the appearance of the chest has not changed significantly since 09/17/2019 or 09/10/2018. IMPRESSION: Stable chest. Electronically signed by Satnam Collado 10/11/2019 4:40 PM
[2019-10-11 17:03] LABS: BASO# 0.04 X1000 (0.0-0.2); BASO% 0.3 % (0.0-0.8); EOS# 0.03 X1000 (0.0-0.7); EOS% 0.2 % (0.0-10.0); HEMATOCRIT 48.1 % (42.0-52.0); HEMOGLOBIN 16.4 g/dL (14.0-18.0); IMM GRAN# 0.06 X1000 (0.0-0.04); IMM GRAN% 0.4 % (0.0-0.5); LYMPH# 2.04 X1000 (1.2-3.4); LYMPH% 13.2 % (20.5-51.1); MCH 28.7 PG (27-31); MCHC 34.1 g/dL (33-37); MCV 84.2 FL (81-99); MONO# 0.99 X1000 (0.11-0.59); MONO% 6.4 % (1.7-9.3); NEUT# 12.33 X1000 (1.4-6.5); NEUT% 79.5 % (42.2-75.2); PLT 320 X1000 (130-400); RBC 5.71 XMIL (4.7-6.1); RDW 13.8 % (11.5-14.5); WBC 15.49 X1000 (4.8-10.8)
[2019-10-11 17:11] LABS: ESTIMATED GFR > 60
[2019-10-11 17:17] LABS: AGAP 23; ALB/GLOB RATIO 1.7; ALBUMIN 4.5 g/dL (3.5-5.0); ALKALINE PHOSPHATASE 97 U/L (32-122); BUN 10 mg/dL (8-22); CALCIUM 9.1 mg/dL (8.8-10.2); CHLORIDE 86 mmol/L (98-107); COSMO 267; GLUCOSE 295 mg/dL (70-104); GOT 13 U/L (10-34); GPT 13 U/L (10-44); LIPASE 18 U/L (13-60); POTASSIUM 4.2 mmol/L (3.5-5.1); SODIUM 128 mmol/L (136-145); TCO2 19 mmol/L (25-35); TOTAL PROTEIN 7.2 g/dL (6.3-8.3)
[2019-10-11] MEDS ORDERED: XANAX MISC ONE (17:39)
[2019-10-11] MEDS ORDERED: LABETALOL IV ONE (17:40)
--- NOTE | 2019-10-11 19:47 | PROVIDER DOCUMENTATION ---
This chart was entered by Sandhya Agarwal Scribe, acting as scribe for Migue Chicas MD. HPI-Chest Pain - General Chief Complaint: Chest Pain Stated Complaint: CHEST PAIN Time Seen by Provider: 10/11/19 16:18 Source: patient, EMS Allergies/Adverse Reactions: Patient Allergies Allergy/AdvReac Type Severity Reaction Status Date / Time No Known Allergies Allergy Verified 10/11/19 16:51 Home Medications: Home Medication List Medication Instructions Recorded Confirmed Last Taken Type Pregabalin [Lyrica] 150 mg PO TID 11/12/13 10/11/19 10/11/19 12:00 History Alprazolam [Xanax] 2 mg PO TID PRN 09/03/18 10/11/19 10/11/19 12:00 History Buprenorphine HCl/Naloxone HCl 0.5 film SL Q12HR 09/04/18 10/11/19 10/11/19 07:00 History [Suboxone 8 mg/2 mg Sl Film] Sertraline [Zoloft] 50 mg PO DAILY 09/16/19 10/11/19 10/11/19 09:00 History - History of Present Illness-CP Nature of Presenting Problem: 59 yom presents to the ed with c/o left sided chest pain with n/v x3 acute onset this am. per ems pt was given ASA and nitro en route to ed and on exam pt is calm and in no distress Location: reports: other (left anterior) Chest Pain Radiation: reports: no radiation Quality of Pain: reports: aching Severity in ED: moderate Onset/Duration: this morning Timing: intermittent Context/Activities at Onset: reports: light activity Modifying Factors: improves with: nothing Associated Symptoms: reports: nausea, vomiting (x3) Nitro Today/Relief: 0.4 mg x 1, provided by EMS, mild relief Aspirin Treatment Today: 325 mg x 1, provided by EMS Prior Chest Pain/Cardiac Workup: reports: heart attack, other (has hx of CABG) Similar Symptoms Previously?: Yes Recently Seen Here or By Another Healthcare Provider: No Review of Systems - Adult - REVIEW OF SYSTEMS - ADULT Constitutional: denies: chills, fever Eyes: reports: no symptoms reported Ears, Nose, Mouth & Throat: reports: no symptoms reported Cardiovascular: reports: see HPI, chest pain. denies: palpitations, syncope Respiratory: denies: cough, shortness of breath, wheezing Gastrointestinal: reports: see HPI, abdominal pain, nausea, vomiting Genitourinary: reports: no symptoms reported Musculoskeletal: denies: back pain, neck pain Integumentary: reports: no symptoms reported Neurological: denies: dizziness/vertigo, headache/migraines Psychiatric: reports: no symptoms reported Endocrine: reports: no symptoms reported Hematologic/Lymphatic: reports: no symptoms reported Allergic/Immunologic: reports: no symptoms reported All Other Systems: Reviewed and Negative Past History - Adult - PAST MEDICAL HISTORY-ADULT Review of Records: reports: Old Records Reviewed, Nursing Assessment Review, Medications Reviewed, Social history reviewed & non-contributory. Major Childhood Illnesses: reports: denies history Cardiovascular: reports: cardiac disease, CAD, HTN Respiratory: reports: denies history Gastrointestinal: reports: denies history Genitourinary: reports: other (only has 1kidney) Musculoskeletal: reports: chronic pain, intervertebral disc disease Hand Dominance: Right Handed Neurological: reports: denies history Psychiatric: reports: anxiety Endocrine/Immune: reports: denies history, Diabetes Diabetes Type: Type 2 Diabetes controlled by:: Insulin Dependent Other Conditions: reports: denies history - PRIOR SURGERIES/PROCEDURES Surgical/Procedure History: reports: CABG, other (lumbar spine) - IMMUNIZATION STATUS Childhood Immunizations: UTD Flu Vaccine: UTD - FAMILY HISTORY Family History: reviewed, not pertinent - SOCIAL HISTORY Smoking: cigarettes, greater than 1 pack/day Provider spent 3-5 mins advising pt. on dangers of tobacco.: Discussed manners to quit use, and f/u contacts for add'l counseling. Substance Use: denies Living Situation: family Physical Exam-General - PHYSICAL EXAM-ADULT Initial Vital Signs Reviewed: Yes (noted BP-242/107 HR-111 temp-99.5) - CONSTITUTIONAL General Appearance: appears well, alert, no apparent distress (nontoxic in apperance) - EYES Eyes: PERRL/EOMI, pink conjunctivae - HEAD, EARS, NOSE, MOUTH & THROAT HENMT: normocephalic/atraumatic, moist mucous membranes, normal ENT inspection - NECK Neck: non-tender, full range of motion, supple, normal inspection - RESPIRATORY Respiratory: chest non-tender, lungs clear, normal breath sounds - CARDIOVASCULAR Cardiovascular: normal peripheral pulses, tachycardia (111) - CHEST (BREASTS) Chest/Breast: deferred - GASTROINTESTINAL (ABDOMEN) Abdominal Exam: normal bowel sounds, non tender, soft - LYMPHATIC Lymphatic: no adenopathy - MUSCULOSKELETAL Back Exam: normal inspection, no CVA tenderness, no vertebral tenderness Extremity: normal range of motion, non-tender, normal gait, normal inspection - SKIN Integumentary: normal color, normal turgor, warm/dry - NEUROLOGIC Neurologic: grossly normal - PSYCHIATRIC Psych/Mental Status: normal mood/affect, normal thought content, normal thought process, oriented x 3 - HEART Score HEART Score: History: Moderately Suspicious HEART Score: ECG: Non-Specific Repolarization Disturbance/LBBB/PM HEART Score: Age: 45-65 Years HEART Score: Risk Factors for Atherosclerotic Disease: > or = 3 Risk Factors or History of Atherosclerotic Disease HEART Score: Troponin: < or = Normal Limit Total HEART Score:: 5 Progress - PLAN OF CARE/RESULTS Progress/Plan/Lab Results: Vital Signs - 8 hr 10/11/19 16:12 10/11/19 16:31 10/11/19 18:01 Temperature 99.5 F Pulse Rate 111 H 104 H 89 Respiratory Rate 20 18 27 H Blood Pressure 242/107 181/115 O2 Sat by Pulse Oximetry 97 98 95 10/11/19 18:16 Temperature Pulse Rate 80 Respiratory Rate 12 Blood Pressure 158/101 O2 Sat by Pulse Oximetry 95 Laboratory Results - last 24 hr 10/11/19 10/11/19 10/11/19 16:32 16:32 16:32 WBC 15.49 H RBC 5.71 Hgb 16.4 Hct 48.1 MCV 84.2 MCH 28.7 MCHC 34.1 RDW Std Deviation 13.8 Plt Count 320 MPV 9.0 Immature Gran % (Auto) 0.4 Neut % (Auto) 79.5 H Lymph % (Auto) 13.2 L [place] % (Auto) 6.4 Eos % (Auto) 0.2 Baso % (Auto) 0.3 Immature Gran # (Auto) 0.06 H Neut # (Auto) 12.33 H Lymph # (Auto) 2.04 [place] # (Auto) 0.99 H Eos # (Auto) 0.03 Baso # (Auto) 0.04 Sodium 128 L Potassium 4.2 Chloride 86 L Carbon Dioxide 19 L Anion Gap 23 BUN 10 Creatinine 1.0 Estimated GFR/1.73 m2 > 60 BUN/Creatinine Ratio 10 Glucose 295 H Calculated Osmolality 267 Calcium 9.1 Total Bilirubin 1.10 H AST 13 ALT 13 Alkaline Phosphatase 97 Troponin T < 0.010 Hxf-D-Tvmpxgtrckg Pept Total Protein 7.2 Albumin 4.5 Globulin 2.7 Albumin/Globulin Ratio 1.7 Lipase 18 10/11/19 10/11/19 16:32 18:43 WBC RBC Hgb Hct MCV MCH MCHC RDW Std Deviation Plt Count MPV Immature Gran % (Auto) Neut % (Auto) Lymph % (Auto) [place] % (Auto) Eos % (Auto) Baso % (Auto) Immature Gran # (Auto) Neut # (Auto) Lymph # (Auto) [place] # (Auto) Eos # (Auto) Baso # (Auto) Sodium Potassium Chloride Carbon Dioxide Anion Gap BUN Creatinine Estimated GFR/1.73 m2 BUN/Creatinine Ratio Glucose Calculated Osmolality Calcium Total Bilirubin AST ALT Alkaline Phosphatase Troponin T < 0.010 Ykf-N-Binlatredgf Pept 547 H Total Protein Albumin Globulin Albumin/Globulin Ratio Lipase Orders Category Date Time Status CHEST-PORTABLE [RAD] Stat Exams 10/11/19 16:26 Completed BNP [PRO B-NATRIURETIC PEPTIDE] Stat Lab 10/11/19 16:32 Completed CBC WITH ELECTRONIC DIFF [HEME] Stat Lab 10/11/19 16:32 Completed COMPREHENSIVE METABOLIC PANEL [CHEM] Stat Lab 10/11/19 16:32 Completed D-DIMER [COAG] Stat Lab 10/11/19 16:32 Received LIPASE [CHEM] Stat Lab 10/11/19 16:32 Completed PROTIME WITH INR [COAG] Stat Lab 10/11/19 16:32 Received PTT [COAG] Stat Lab 10/11/19 16:32 Received TROPONIN T Stat Lab 10/11/19 16:32 Completed TROPONIN T Stat Lab 10/11/19 18:43 Completed Alprazolam [Xanax] Med 10/11/19 17:39 Discontinued 1 mg MISC NOW ONE Labetalol Med 10/11/19 17:40 Discontinued 20 mg IV NOW ONE Sucralfate [Carafate Liquid] Med 10/11/19 16:31 Discontinued 1 gm PO NOW ONE EKG [EKG] Stat Ther 10/11/19 16:25 Draft Proceed to admit with Dr. Wharton hospitalist for chest pain observation. Initial EKG and troponin negative x 2. Noted high risk history and patient aware and in agreement with plan of care. Result Diagrams: 10/11/19 16:32 10/11/19 16:32 - EKG 1 Time of EKG reading by physician:: 15:52 EKG Read and Signed by:: Migue Chicas EKG Interpretation (*Must complete 3 of following elements*): Abnormal Rate: 108 Rhythm: sinsu tachy w/ occ pvc [place]: normal QRS: PVC's GA Interval: normal ST Wave: normal Comments: T wave abnormality, consider inferior ischemia - XRAY 1 XRAY: Bilateral XRAY Study: Chest Impression: See EMR Report (EXAM: CHEST-PORTABLE 10/11/2019 HISTORY: chest pain TECHNIQUE: AP portable at 1634 COMMENT: There are sternotomy wires. The heart size is not enlarged. Overall the appearance of the chest has not changed significantly since 09/17/2019 or 09/10/2018. IMPRESSION: Stable chest. Electronically signed by Satnam Collado 10/11/2019 4:40 PM 10/11/19 1640 Interpreting Physician: Satnam Collado MD Dictated Date/Time: 10/11/19 1639 cc: Migue Chicas MD; Prateek Sifuentes MD) Departure - Departure Date of Disposition Decision: 10/11/19 Time of Disposition Decision: 19:46 DIAGNOSIS: Nonspecific chest pain, Tobacco use disorder, Coronary artery disease, Insulin dependent diabetes mellitus, Hypertension, Anxiety Disposition: ADMITTED INPATIENT 09 Certified Medical Emergency: Emergent Condition: Fair Referrals and Follow-Ups: Prateek Sifuentes MD [Primary Care Provider] - Discharge Education: Steps to Quit Smoking, [id number] - Critical Care Note This patient required my direct & personal management of CC.: No Attestation - Physician/ AMITA Attestation Patient care was provided by Advanced Practice Provider:: No The physician spent face to face time with patient:: Yes Advanced Practice Provider documentation review:: Supervising physician onsite and consulted in the evaluation and care of this patient. The physician did have a face to face encounter with the patient. This chart was documented by the indicated scribe, (Sandhya Agarwal Scribe) and accurately reflects the services I performed and decisions made by me, Migue Chicas MD, as attested by the provider's signature.
[2019-10-11] MEDS ORDERED: ZOFRAN IV ONE (19:57)
[2019-10-11 21:10] LABS: INR 1.07; PROTIME 14.7 Seconds (11.0-16.0); PTT 27.6 Seconds (22.3-41.8)
[2019-10-11] MEDS ORDERED: NITROGLYCERIN SL PRN (22:56)
[2019-10-11] MEDS ORDERED: ZOFRAN IV PRN (22:56)
[2019-10-11] MEDS ORDERED: TYLENOL PO PRN (22:56)
[2019-10-12 06:38] LABS: BASO# 0.04 X1000 (0.0-0.2); BASO% 0.4 % (0.0-0.8); EOS# 0.19 X1000 (0.0-0.7); EOS% 2.1 % (0.0-10.0); HEMATOCRIT 45.1 % (42.0-52.0); HEMOGLOBIN 15.4 g/dL (14.0-18.0); IMM GRAN# 0.03 X1000 (0.0-0.04); IMM GRAN% 0.3 % (0.0-0.5); LYMPH# 3.08 X1000 (1.2-3.4); LYMPH% 33.3 % (20.5-51.1); MCH 28.9 PG (27-31); MCHC 34.1 g/dL (33-37); MCV 84.8 FL (81-99); MONO# 1.03 X1000 (0.11-0.59); MONO% 11.1 % (1.7-9.3); NEUT# 4.88 X1000 (1.4-6.5); NEUT% 52.8 % (42.2-75.2); PLT 278 X1000 (130-400); RBC 5.32 XMIL (4.7-6.1); RDW 13.9 % (11.5-14.5); WBC 9.25 X1000 (4.8-10.8)
[2019-10-12] MEDS: HUMULIN R SUBQ SCH ×4 (07:00→23:46)
[2019-10-12 07:01] LABS: CHOLESTEROL 191 mg/dL (0-200); CK PROFILE 55 U/L (24-204); HDL 30 mg/dL (35-55); LDL 127 mg/dL; TRIGLYCERIDES 169 mg/dL (39-160); VLDL 34 mg/dL
--- NOTE | 2019-10-12 07:02 | HISTORY AND PHYSICAL ---
PRIMARY CARE PHYSICIAN: Dr. Prateek Sifuentes in [place]. CHIEF COMPLAINT: Chest pain. HISTORY OF PRESENTING ILLNESS: A 59-year-old male with a history of coronary disease, diabetes mellitus type 2, hyperlipidemia, and hypertension, who had presented to the emergency department with a 1-day history of chest pain. He described it as sharp and pressure-like. The patient states that the chest pain was not improving, and subsequently had come to the emergency department. In the ED, the patient was evaluated, and due to his presenting symptoms, he will require admission for further management. At the time of my examination, the patient denied any headache, fever, chills, hemoptysis, melena, weight changes, but complained of chest pain, nausea, and vomiting. PAST MEDICAL HISTORY: Includes diabetes mellitus type 2, coronary disease, hyperlipidemia, hypertension. PAST SURGICAL HISTORY: Coronary bypass, back surgery. ALLERGIES: No known drug allergies. CURRENT MEDICATIONS: Include Xanax 2 mg p.o. t.i.d., Suboxone 8 mg 1 film every 12 hours, Lyrica 150 mg p.o. t.i.d., Zoloft 50 mg p.o. daily. SOCIAL HISTORY: A [id number] history of smoking. Denies any history of alcohol or illicit drug use. FAMILY HISTORY: Positive for coronary disease in mother and father. REVIEW OF SYSTEMS: A 14-point review of system is as in HPI, other systems negative. PHYSICAL EXAMINATION: GENERAL: Cooperative, friendly male. He is resting more comfortably now. VITAL SIGNS: Temperature 99.5 degrees, pulse 111, respirations 20, blood pressure 158/101. HEENT: Atraumatic, normocephalic. Extraocular movements intact. PERRLA. NECK: No masses. CHEST: Clear to auscultation. CARDIOVASCULAR: Regular rate and rhythm. ABDOMEN: Soft. Positive bowel sounds. EXTREMITIES: No edema. NEUROLOGIC: He is awake, alert, oriented x3. GENITOURINARY: No bladder distention. SKIN: Warm. IMAGING AND LABORATORY DATA: WBC is 15.49, hemoglobin 16.4, hematocrit 48.1, platelets 320,000. Sodium 128, potassium 4.2, chloride 86, CO2 is 19, BUN is 10, creatinine 1.0, glucose is 295. Chest x-ray: Stable chest. ASSESSMENT: A 59-year-old male with a history of coronary disease, diabetes mellitus type 2, hyperlipidemia, and hypertension, who presented to the emergency department with a 1-day history of having chest pain. Will place the patient for observation for further evaluation and management. 1. Chest pain. 2. Coronary artery disease. 3. Diabetes mellitus type 2. 4. Hypertension. 5. Mild hyponatremia. PLAN: 1. Will admit the patient to medical floor with telemetry. 2. Continue with cardiac workup. Check EKG, serial cardiac enzymes. Have the patient continue on aspirin. Will use sublingual nitroglycerin p.r.n. chest pain. 3. Will consult Cardiology. 4. Monitor blood glucose, and put the patient on a sliding scale insulin regimen. 5. Monitor blood pressure, and resume antihypertensive agent. 6. Continue with gentle hydration, and monitor his electrolytes. 7. Will put the patient on DVT prophylaxis with SCDs. 8. Will continue to follow, reassess, and make further recommendation based on the patient's clinical course. cc: Juan Chandra MD
[2019-10-12] MEDS ORDERED: ASPIRIN PO SCH (09:00)
--- NOTE | 2019-10-12 10:57 | CARDIOLOGY CONSULTATION ---
DATE: 10/12/2019 REASON FOR CONSULTATION: Cardiology consulted for chest pain. HISTORY OF PRESENT ILLNESS: A 59-year-old gentleman with history of hypertension, diabetes, hyperlipidemia, coronary artery disease, coronary artery bypass grafting, came to the emergency room with chest pain. He had pressure-like sensation across his chest, which he describes as mild heaviness. In the last couple of years, he has not had any chest pain at all. His exercise capacity is limited. He has had multiple back surgeries, and his exercise capacity is limited. There is no history of palpitations. There is no history of dizziness or syncope. As far as chest pains are concerned, there was no radiation to the back, and not associated with any diaphoresis. REVIEW OF SYSTEMS: A 14-point review of systems was done. GI: There is no history of nausea, vomiting, diarrhea. There is no history of hematemesis or melena. Central Nervous System: No focal weakness to suggest a CVA or TIA. Genitourinary: There is no dysuria or hematuria. PAST MEDICAL HISTORY: 1. Coronary artery disease, coronary artery bypass grafting on 10/21/2013 with LOPEZ to left anterior descending artery, saphenous vein graft to obtuse marginal artery, saphenous vein graft to PDA. 2. History of hypertension. 3. Diabetes. 4. Back surgeries. 5. Hyperlipidemia. SOCIAL HISTORY: A [id number] history of smoking. There is no history of alcohol or illicit drug abuse. HOME MEDICATIONS: Include Xanax, Suboxone, Lyrica 150, Zoloft 50 mg a day. He is not on any medications for diabetes or coronary artery disease. He says he has been seeing his family physician on a yearly basis. PHYSICAL EXAMINATION: Vital Signs: Blood pressure was 170/78. When he came in, blood pressure was 242/107. Cardiovascular: Jugular venous pressure was normal. First and second heart sounds were heard. There is a faint systolic murmur. Respiratory: Normal air entry. There are no crepitations or rhonchi. Abdomen: Soft, nontender. There was no guarding or rigidity. Bowel sounds were heard. Central Nervous System: Alert and oriented, moving all 4 extremities. Detailed central nervous system examination not performed. Extremities: No pedal edema. HEENT: Atraumatic, normocephalic. IMAGING AND LABORATORY DATA: Cardiac enzymes were negative. Sodium 128, potassium 4.2, BUN 10, creatinine 1.0. WBC 9.25, hemoglobin 15.4, hematocrit 45, platelet count of 278. Chest x-ray was unremarkable. Glucose was 295. ASSESSMENT AND PLAN: Mr. Ronnie Chawla is a 59-year-old gentleman with history of hypertension, diabetes, coronary artery disease, coronary artery bypass grafting, who has had chronic back pain from multiple back surgeries. He is not on any medications pertaining to his cardiac status. He comes in with complaints of chest pain. He has accelerated hypertension. I suspect this chest pain is secondary to hypertension. Regardless, he has had coronary artery bypass grafting with 3 vessel in 2013. RECOMMENDATIONS: 1. We will put him on aspirin. 2. For blood pressure, we will start him on Cozaar 100 mg a day. He is a diabetic as well. 3. Diabetes. Per Hospitalist Service management. 4. He, in the past, was on Pravachol 40 mg a day. However, he has not been taking any Pravachol. We will put him back on Pravachol 40 mg a day. We will check lipid profile as well. 5. Will get an echocardiogram to assess cardiac and valvular function. Thank for the consult. Will follow hospital course. cc: Vlad Huston MD
[2019-10-12 12:19] LABS: HEMOGLOBIN A1C 11.6 % (4.8-6.0)
[2019-10-12] MEDS ORDERED: LEXISCAN ONE (13:30)
--- NOTE | 2019-10-12 16:01 | ECHO REPORT ---
ORDER DATE: 10/12/2019 MEASUREMENTS: 1. Septal thickness 0.7. 2. Left ventricular internal diameter diastole 4.1. 3. Aortic root 2.7. 4. Left atrium 3.3. SUMMARY: 1. Technically difficult study due to limited acoustic window quality. 2. Aortic valve is sclerotic but appears to open adequately on 2-dimensional images. Peak gradient across the aortic valve is 15 mmHg. Mitral and tricuspid valves are without evidence of structural abnormality, while pulmonic valve is not well demonstrated. There is very mild mitral regurgitation. The aortic root is normal in size. 3. Normal left ventricular dimension suggested. The estimated left ventricular ejection fraction is approximately 40%. There is akinesis of the mid to apical septum and anteroseptal region, as well as apical hypokinesis. Previous infarction in the distribution of left anterior descending coronary is suggested. The left atrium, right atrium, right ventricle are normal in size with grossly preserved right ventricular systolic function. 4. No pericardial effusion. 5. Inferior vena cava not well demonstrated. cc: MD Pat Rubio PA
--- NOTE | 2019-10-12 16:22 | Diag Imaging Result Document ---
PROCEDURE NAME: MYOCARDIAL PERF SCAN, STR/REST - 10/12/2019 SUMMARY: The patient was administered 14.4 mCi of technetium 99-m sestamibi, after which resting cardiac images were obtained. The patient was subsequently administered Lexiscan 0.4 mg intravenously, after which the heart went from 56 beats per minute to 85 beats per minute and the blood pressure went from 118/65 to 123/71. With Lexiscan, the patient denied chest discomfort. Following the administration of Lexiscan, the patient was administered 42.0 mCi of technetium 99-m sestamibi, after which gated stress cardiac images were obtained. Baseline ECG demonstrates sinus bradycardia, anteroseptal infarct of undetermined age, and lateral T-wave inversion. With Lexiscan, baseline T-wave abnormality did not change significantly. There were no diagnostic ST-segment changes. SPECT images were reconstructed in the short, horizontal long, and vertical axis. Review of these images demonstrated a medium-sized, severe defect in uptake involving the apex of the left ventricle on stress images which appears similar on resting images. No significant reversibility is evident. Gated images demonstrate a calculated left ventricular ejection fraction of 45% with akinesis of the apical anteroseptal region and apex. CONCLUSIONS: 1. Adequate response to Lexiscan. 2. Clinically negative for chest pain. 3. Electrocardiographically, there were no diagnostic ST-segment changes on ECG following administration of Lexiscan. 4. Lexiscan sestamibi images demonstrate medium-sized, severe fixed defect involving the apex of the left ventricle with corresponding akinesis consistent with previous myocardial infarction in distribution of distal left anterior descending coronary. There is no convincing scintigraphic evidence of inducible myocardial ischemia. Calculated left ventricular ejection fraction 45%.. cc: MD Pat Rubio PA
[2019-10-12] MEDS: PRILOSEC PO SCH (16:46)
[2019-10-12] MEDS: COZAAR PO SCH (16:55)
[2019-10-12] MEDS: ZOLOFT PO SCH (16:55)
[2019-10-12] MEDS: LYRICA PO SCH (16:55)
[2019-10-12] MEDS ORDERED: JARDIANCE PO ONE (19:44)
[2019-10-12] MEDS ORDERED: LANTUS INSULIN SUBQ SCH (21:00)
[2019-10-12] MEDS: XANAX PO PRN (23:44)
[2019-10-13] MEDS: SUBOXONE 8 MG/2 MG SL SCH ×2 (00:34→09:49)
[2019-10-13] MEDS: HUMULIN R SUBQ SCH ×2 (06:56→12:29)
[2019-10-13] MEDS: PRILOSEC PO SCH (06:57)
--- NOTE | 2019-10-13 07:45 | PROGRESS NOTE ---
DATE: 10/12/2019 INTERVAL HISTORY: No acute events overnight. SUBJECTIVE: He denies any more chest pain or shortness of breath. He states he takes his medications regularly. He is not sure why his blood pressure was so high on presentation. Currently he denies chest pain, shortness of breath, nausea, vomiting, abdominal pain, or palpitation. VITAL SIGNS: Temperature 98.3 degrees, pulse 77, respiratory 18, blood pressure 170/60, saturating 98% room air. PHYSICAL EXAMINATION: General: Not in acute distress. HEENT: He has missing teeth. Oral cavity is moist. Lungs: Air entry bilaterally equal. No wheeze, rhonchi, crackles. Cardiovascular: S1, S2 normal. Systolic murmur heard at base of the heart. No rub or gallop. Abdomen: Soft, nontender. No jugular venous distention. Extremity: No lower extremities edema. Neurologic: He is alert oriented x3. LABORATORY DATA: CBC is unremarkable. He does have hyperglycemia. Troponins were largely unremarkable. No positive microbiological data. DIAGNOSTIC DATA: Chest x-ray was unremarkable. Myocardial perfusion scan did not have any inducible ischemia. He had ejection fraction of 45%. ASSESSMENT AND PLAN: 1. Chest pain with history of coronary artery disease requiring coronary artery bypass grafting in 2012. Myocardial stress test did not have any inducible ischemia. His hypertension and hypertensive emergency could have contributed to it. Continue to manage his blood pressure with losartan, metoprolol and up titrate as tolerated. He is also on aspirin which has been started by our pulmonology technician. 2. History of insulin-dependent diabetes mellitus with uncontrolled hyperglycemia. Continue his home glargine and sliding scale insulin. I started him empagliflozin, or Jardiance. 3. History of anxiety and chronic back pain. Continue his home medications of alprazolam and Suboxone with pregabalin and sertraline. DISPOSITION: I will monitor patient inside the hospital overnight for any telemetry event. If he continues to do well, my plan is to discharge him home tomorrow. Plan of care discussed with him. His questions have been answered. cc: Jonathan Huffman MD
[2019-10-13] MEDS ORDERED: ASPIRIN PO SCH (09:00)
[2019-10-13] MEDS ORDERED: TOPROL XL PO SCH (09:00)
[2019-10-13] MEDS ORDERED: JARDIANCE PO SCH (09:00)
[2019-10-13] MEDS: ZOLOFT PO SCH (09:49)
[2019-10-13] MEDS: LYRICA PO SCH ×2 (09:49→14:27)
[2019-10-13] MEDS: COZAAR PO SCH (09:51)
[2019-10-13] MEDS: XANAX PO PRN ×2 (10:02→16:49)
[2019-10-13 15:36] VITALS: BP 87/55
--- NOTE | 2019-10-14 18:25 | DISCHARGE SUMMARY ---
ADMISSION DATE: 10/11/2019 DISCHARGE DATE: 10/13/2019 DISCHARGE DISPOSITION: Home. DISCHARGE CONDITION: Hemodynamically stable. His blood pressure is within acceptable range. She is denying any chest pain or shortness of breath. He is provided detailed discharge instructions about the fact that he needs to take his blood pressure medication and new medication was added for his diabetes, and he should see his heart doctor and regular doctor within 1 week of discharge. I discussed about medication reconciliation as well as his bilateral toe wound. DISCHARGE DIAGNOSES: 1. Chest pain. 2. Accelerated hypertension with hypertensive emergency. 3. Uncontrolled diabetes mellitus type 2, insulin-dependent. OTHER DIAGNOSES: 1. History of essential hypertension. 2. History of insulin-dependent diabetes mellitus type 2. 3. History of coronary artery disease requiring coronary artery bypass graft in 2012. 4. History of anxiety. 5. History of hyperlipidemia. 6. History of back surgeries. 7. Active tobacco abuse. 8. 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 DISCHARGE MEDICATIONS: 1. Insulin glargine 30 units at nighttime. 2. Suboxone 0.5 mg film sublingual every 12 hours. 3. Lyrica 150 mg t.i.d. 4. Alprazolam 2 mg t.i.d. as needed for anxiety. 5. Sertraline 50 mg daily. 6. Aspirin 81 mg daily, 1-month supply with 1 refill. 7. Losartan 25 mg daily, 1-month supply with 1 refill. 8. Jardiance, or empagliflozin, 25 mg daily, 1-month supply, 1 refill. 9. Metoprolol succinate extended release 50 mg daily, 1-month supply with 1 refill. 10. Atorvastatin 20 mg daily. VITALS AT TIME OF DISCHARGE: Temperature 97.8 degrees, pulse 61, respiratory rate 19, blood pressure 104/58, saturating 96% on room air. PHYSICAL EXAMINATION: Not in acute distress. Oral cavity is moist. Air entry bilaterally equal. No wheeze, rhonchi, or crackles. S1, S2 normal. No murmur or gallop. Abdomen: Soft, nontender. No lower extremity edema. He has wounds of both of his great toenail beds. It does not appear infected. Apparently, he had tried to clip his nails out. He has intact dorsalis pedis, posterior tibial pulses. There is no erythema, edema, or throbbing of his great toe wounds. He is alert oriented x3. LABORATORY DATA: Significant labs during hospital admission and discharge: WBC 9.2, hemoglobin 15.4, platelet 278,000. BUN 10, creatinine 1, potassium 4.2, blood glucose 137. Hemoglobin A1c 11.6. Troponins were less than 0.010. Cholesterol profile had total cholesterol of 191, LDL of 127. No microbiology during hospital admission. SIGNIFICANT IMAGIN. Chest x-ray on admission did not have acute cardiopulmonary process. 2. Myocardial perfusion nuclear medicine scan had adequate response to Lexiscan, clinically negative for chest pain. Electrocardiographically, there was no diagnostic ST-segment changes. Lexiscan images demonstrated medium-sized, severe fixed defect involving the apex of the left ventricle with corresponding akinesis consistent with previous myocardial infarction in distribution of distal left anterior descending artery. There is no convincing evidence of inducible myocardial ischemia. His left ventricular ejection fraction is 45%. Echocardiogram had ejection fraction of 40%. There was akinesia of the mid to apical septum, anteroseptal region, as well as apical hypokinesia, previous infarction in the distribution of LAD was suggested. 3. Electrocardiogram on presentation had sinus tachycardia with occasional premature ventricular complexes and T-wave abnormality, consider inferior ischemia. HOSPITAL COURSE SUMMARY: Mr. Chawla is a 59-year-old , man, with past medical history of active tobacco abuse, coronary artery disease, status post CABG in 2012, who came in on 10/11/2019, with chief complaints of chest pain. It was sharp and pressure-like in the center of the chest, which did not improve, so he decided to come to the emergency room. Considering his prior history of coronary artery disease, he was admitted for further management and Cardiology team was consulted. In the emergency room, he also complained of some nausea and vomiting. He underwent nuclear medicine stress test which did not detect any inducible ischemia. On presentation, he was found to have blood pressure of 242/107, requiring IV pain medication. It slowly came down. It was thought that his chest pain symptoms were chest discomfort symptoms related to accelerated hypertension and him not taking his medications regularly. There were also concerns about uncontrolled diabetes. With medications, his symptoms improved, so it was decided to discharge him. He was started on antihypertensive medication which he was not taking at all at home and was advised to have followup with Cardiology. He was also started on Jardiance for his diabetes since hemoglobin A1c was 11, despite being on insulin. TIME SPENT: More than 30 minutes of discharge time was spent in taking care of the patient. All of his questions satisfactorily answered. cc: Jonathan Huffman MD
== END 2019-10-13 16:52 | disposition home or self-care (01) ==
LOC: SUPCPDRO → EDIPHOLD 15:41 → ED 15:41 → SUATTDRO 22:45 → 4N 10-12 08:47
PROVIDERS: ATTEND Internal Medicine